=== PATIENT | female | born 1995 | race Caucasian/White ===

== ENCOUNTER 2021-06-22 09:05 | Day surgery (SDC) | payer BC, MEDICAID, OTHER, SELFPAY ==
[2021-06-22 10:01] VITALS: BMI 32.9
[2021-06-22] MEDS ORDERED: hydrALAZINE 20 MG/ML VIAL SLOW IVP PRN (12:33)
[2021-06-22] MEDS ORDERED: Acetaminophen/Codeine 30-300mg Tablet PO PRN ×2 (12:35)
[2021-06-22] MEDS ORDERED: Ondansetron PF 4 MG/2 ML Vial IVP PRN (12:36)
[2021-06-22] MEDS ORDERED: Sodium Chloride 0.9% 1,000 ML IV SCH (12:45)
[2021-06-22] MEDS ORDERED: Dexamethasone 4 MG TAB PO SCH (13:30)
[2021-06-22] MEDS ORDERED: Ondansetron PF 4 MG/2 ML Vial ONE (13:40)
[2021-06-22] MEDS: Sodium Chloride 0.9% 1,000 ML IV SCH ×2 (14:05→16:08)
== END 2021-06-22 18:00 | disposition home or self-care (01) ==
LOC: CSHLD/OP 09:05
PROVIDERS: ATTEND Obstetrics & Gynecology
DX: O98.513 Other viral diseases complicating pregnancy, third trimester (principal); U07.1 COVID-19; O99.891 Other specified diseases and conditions complicating pregnancy; R10.32 Left lower quadrant pain; Z3A.30 30 weeks gestation of pregnancy; Z79.899 Other long term (current) drug therapy
CPT/HCPCS: 94760; 96360; 96361; 96375; 99283; J2405; J8540

== ENCOUNTER 2023-03-31 15:39 | Inpatient (IN) | payer OTHER ==
[2023-03-31] MEDS ORDERED: Piperacillin/Tazobactam 3.375 GM VIAL ONE (23:10)
[2023-04-01] MEDS ORDERED: Mag-Al Plus 1200 MG/1200 MG/120 MG/30 ML UDCUP ONE (04:39)
== END 2023-04-03 15:31 | disposition home or self-care (01) | DRG 832 ==
LOC: UNDOADMIN 15:39 → CSHLD 15:39 → CSHTELE 15:39 → UNDOADMIN 20:17 → CSHERHOLD 20:17 → CSHLD 20:17 → UNDODISIN 04-02 13:03
PROVIDERS: ADMIT Obstetrics & Gynecology; ATTEND Obstetrics & Gynecology
DX: O99.712 Diseases of the skin and subcutaneous tissue complicating pregnancy, second trimester (principal); L03.116 Cellulitis of left lower limb; Z3A.21 21 weeks gestation of pregnancy
CPT/HCPCS: 36415; 80048; 80053; 81001; 83605; 85025; 85652; 86140; 87040; 87086; 94760; 94762; 96374; J2543; J3490; J7050